=== PATIENT | male | born 1980 | race Hispanic/Latino ===

== ENCOUNTER 2019-11-28 15:01 | Inpatient (IN) | payer OTHER ==
[~2019-11-28] VITALS: Ht 170.2 cm; Wt 75.9 kg
[2019-11-28 15:30] LABS: BASOPHILS % (AUTO) 0.7 % (0.0-5.0); HEMATOCRIT 30.8 % (42-54); LYMPHOCYTES % (AUTO) 11.1 % (21.0-51.0); MEAN CORPUSCULAR HEMOGLOBIN 31.3 pg (27.0-33.0); MEAN CORPUSCULAR HGB CONC 36.7 g/dL (32.0-36.0); MEAN CORPUSCULAR VOLUME 85.3 fL (79-99); MONOCYTES % (AUTO) 10.6 % (3.0-13.0); NEUTROPHILS % (AUTO) 76.6 % (40.0-77.0); PLATELET COUNT (AUTO) 83 K/uL (130-400); RED BLOOD CELL COUNT(AUTO) 3.61 MIL/uL (4.50-6.20); RED CELL DISTRIBUTION WIDTH 19.5 % (11.0-15.5)
[2019-11-28] MEDS ORDERED: CEFTRIAXONE SODIUM 2 GM VIAL ONE ×2 (15:38→15:58)
[2019-11-28] MEDS ORDERED: LORAZEPAM 2 MG/ML 1 ML VIAL ONE (15:39)
[2019-11-28 15:49] LABS: ALCOHOL, BLOOD 8 mg/dL (0-10); AMMONIA 36 umol/L (11-32)
[2019-11-28 15:53] LABS: APPEARANCE,URINE CLOUDY (CLEAR); BILIRUBIN,URINE LARGE (NEGATIVE); COLOR,URINE BROWN (YELLOW); GLUCOSE, URINE (UA) 100 mg/dL (NEGATIVE); KETONES,URINE 15 mg/dL (NEGATIVE); LEUKOCYTE ESTERASE ,URINE LARGE (NEGATIVE); NITRATE,URINE POSITIVE (NEGATIVE); OCCULT BLOOD,URINE MODERATE (NEGATIVE); PROTEIN,URINE >=300 mg/dL (NEGATIVE)
[2019-11-28 16:05] LABS: BACTERIA,URINE Moderate /HPF (None Seen); MUCUS,URINE Few LPF (None Seen); SQUAMOUS EPITHELIAL CELL,UR 0-2 /HPF (0-2)
[2019-11-28 16:08] LABS: AMPHET/METH SCREEN,URINE NEGATIVE (NEGATIVE); BARBITURATE SCREEN, URINE NEGATIVE (NEGATIVE); BENZODIAZEPINES SCREEN,URINE NEGATIVE (NEGATIVE); CANNABINOID SCREEN,URINE NEGATIVE (NEGATIVE); COCAINE SCREEN,URINE NEGATIVE (NEGATIVE); OPIATE SCREEN,URINE NEGATIVE (NEGATIVE); PHENCYCLIDINE SCREEN,URINE NEGATIVE (NEGATIVE)
[2019-11-28 16:09] LABS: ALBUMIN 2.1 g/dL (3.5-5.0); CREATININE 0.8 mg/dL (0.5-1.5)
[2019-11-28 16:11] LABS: BILIRUBIN,TOTAL 19.8 mg/dL (0.2-1.0); POTASSIUM 2.8 mmol/L (3.5-5.1)
[2019-11-28 16:12] LABS: BILIRUBIN,DIRECT 16.9 mg/dL (0.0-0.3)
[2019-11-28] MEDS ORDERED: POTASSIUM CHLORIDE 10% ELIXIR 20 MEQ/15 ML UDCUP ONE (17:14)
[2019-11-28] MEDS ORDERED: MAGNESIUM SULFATE 1 GM in SODIUM CHLORIDE 0.9% 50 ML IV SCH ×2 (17:45→18:00)
[2019-11-28] MEDS ORDERED: LORAZEPAM 2 MG/ML 1 ML VIAL IVP PRN (19:00)
[2019-11-28] MEDS ORDERED: ONDANSETRON HCL 4 MG/2 ML VIAL IV PRN (19:00)
[2019-11-28] MEDS ORDERED: PROMETHAZINE HCL 25 MG TABLET PO PRN (19:00)
[2019-11-28] MEDS ORDERED: PHARMACY COMMUNICATION MISC PRN (19:00)
[2019-11-28] MEDS ORDERED: ACETAMINOPHEN 325 MG TAB PO PRN (19:00)
[2019-11-28] MEDS: THIAMINE HCL 100 MG TABLET PO SCH (19:00)
[2019-11-28] MEDS: POTASSIUM CHLORIDE 20 MEQ ERTAB PO SCH (19:15)
[2019-11-28] MEDS: FAMOTIDINE/PF 20 MG/2 ML VIAL IV SCH (21:00)
[2019-11-28] MEDS ORDERED: THIAMINE HCL 100 MG, FOLIC ACID 1 MG, M.V.I. IV [ADULT] 10 ML in SODIUM CHLORIDE 0.9% 1... IV SCH (21:00)
[2019-11-28] MEDS ORDERED: THIAMINE HCL 100 MG TABLET ONE (21:23)
[2019-11-28] MEDS ORDERED: FAMOTIDINE/PF 20 MG/2 ML VIAL IV ONE (21:23)
[2019-11-28] MEDS ORDERED: POTASSIUM CHLORIDE 20 MEQ ERTAB PO ONE (21:23)
[2019-11-29 00:14] VITALS: BP 126/89
[2019-11-29] MEDS ORDERED: PHARMACY COMMUNICATION MISC PRN (00:30)
[2019-11-29] MEDS ORDERED: CHLORDIAZEPOXIDE HCL 25 MG CAP ONE (00:54)
--- NOTE | 2019-11-29 01:45 | NUR ---
PT PULLED IV CATH OUT. PT CONFUSED ABOUT WHERE HE IS AT. REORIENTATED PT TO ROOM AND PLACE. STARTED NEW IV 22G TO RIGHT FOREARM.
[2019-11-29] MEDS: LORAZEPAM 2 MG/ML 1 ML VIAL IVP PRN ×2 (02:44→09:49)
--- NOTE | 2019-11-29 04:40 | NUR ---
PT PULLED IV OUT WITH CATH INTACT. PT REFUSING FOR NEW IV START. REORIENTATED PT TO ROOM AND PLACE. WILL CONT TO MONITOR PT STATUS.
[2019-11-29 07:30] VITALS: BP 110/74
[2019-11-29] MEDS: FAMOTIDINE/PF 20 MG/2 ML VIAL IV SCH ×2 (09:00→20:07)
[2019-11-29] MEDS ORDERED: ZIPRASIDONE MESYLATE 20 MG/VIAL IM SCH (10:00)
[2019-11-29 10:08] LABS: CREATININE 0.6 mg/dL (0.5-1.5); POTASSIUM 3.4 mmol/L (3.5-5.1)
[2019-11-29] MEDS: FOLIC ACID 1 MG TABLET PO SCH (10:17)
[2019-11-29] MEDS: MULTIVITAMIN TABLET PO SCH (10:17)
[2019-11-29] MEDS: THIAMINE HCL 100 MG TABLET PO SCH (10:17)
[2019-11-29] MEDS: CHLORDIAZEPOXIDE HCL 25 MG CAP PO PRN ×3 (10:18→21:04)
[2019-11-29 10:30] LABS: MAGNESIUM 1.7 mg/dL (1.80-2.40)
--- NOTE | 2019-11-29 10:30 | NUR ---
PAITENT WITH CONFUSION AND DELIRIUM HITTING DOMINGUEZ. CODE MAN POWER ACTIVATED , ATIVAN GIVEN PER IM ROUTE DUE TO NO IV ACCESS,OKAYED BY AJ ,CARAMEL CUTTER MACHINE ,AND PLACED STANDING ORDER FOR SETH IN X 1 . PATIENT WITH 1:1 OBSERVATION. INFORMED EMERGECNY CONTACT OF STATUS . WILL CONT TO MONITOR .
[2019-11-29 11:00] VITALS: BP 118/82
[2019-11-29 11:03] LABS: INR 1.25 (0.85-1.15); PROTHROMBIN TIME 13.4 SEC (9.6-11.6)
[2019-11-29] MEDS ORDERED: MAGNESIUM OXIDE 400 MG TABLET PO SCH (11:45)
[2019-11-29] MEDS: POTASSIUM CHLORIDE 20 MEQ ERTAB PO SCH (14:40)
--- NOTE | 2019-11-29 16:06 | NUR ---
CM NOTE/IA PATIENT IS CONFUSED, NEXT OF KIN CALLED, ADITI DOUGLASQUEZ. PER SPOUSE, PATIENT LIVES WITH FAMILY, IS INDEPENDENT WITH ADLS, NO USE OF DME OR PROVIDER SERVICES, AND FEELS SAFE FOR PATIENT TO RETURN HOME ONCE DISCHARGED. MAY ALSO CONTACT MOTHER IN LAW, MARK CERON,, , IF ANYTHING NEEDED. Addendum: 11/29/19 at 1609 by ELIAS MIXON RN CM Amended: Links added.
--- NOTE | 2019-11-29 16:41 | NUR ---
PATIENT RESTING ,RESP EVEN AND UNLABORED . WILL CONT TO MONITOR. 1:1 OBSERVATION
[2019-11-29] MEDS: LACTULOSE 20 GM/30 ML UDCUP PO PRN (17:39)
--- NOTE | 2019-11-29 18:26 | NUR ---
PATIENT WITH TREMORS ,PACING BACK AND FORTH . LIBRIUM GIVEN PER PRN ORDER. 1:1 SITTER
[2019-11-29] MEDS ORDERED: LORAZEPAM 2 MG/ML 1 ML VIAL IM PRN (18:29)
[2019-11-29 20:39] VITALS: BP 121/83
--- NOTE | 2019-11-30 00:51 | NUR ---
ROUNDS PT ASLEEP AT THIS TIME. OBSERVED RISE AND FALL OF CHEST. NO DISTRESS NOTED. SITTER REMAINS OUTSIDE PT'S ROOM WITH DOOR OPEN. PT WILL CONT TO BE CLOSELY MONITORED. PT REMAINS WITHOUT PIV, WILL ATTEMPT TO PLACE A PIV ONCE PT WAKES UP.
[2019-11-30] MEDS: CHLORDIAZEPOXIDE HCL 25 MG CAP PO PRN ×3 (03:26→17:54)
[2019-11-30 04:00] VITALS: BP 118/81
--- NOTE | 2019-11-30 04:47 | NUR ---
PIV INSERTED ON RIGHT UE. 20 G. SALINE LOCKED. WRAPPED WITH KERLIX AND TAPE TO PRESERVE PIV. PIV PATENT, FLUSHES WELL, GOOD BLOOD RETURN.
[2019-11-30 05:52] LABS: ALBUMIN 1.6 g/dL (3.5-5.0); CREATININE 0.5 mg/dL (0.5-1.5); MAGNESIUM 1.9 mg/dL (1.80-2.40); TOTAL PROTEIN, SERUM 5.7 g/dL (6.0-8.3)
[2019-11-30 06:06] LABS: BILIRUBIN,TOTAL 17.7 mg/dL (0.2-1.0); POTASSIUM 2.8 mmol/L (3.5-5.1)
[2019-11-30] MEDS: LACTULOSE 20 GM/30 ML UDCUP PO PRN (06:07)
--- NOTE | 2019-11-30 06:09 | NUR ---
REYNALDO PAGED TO REPORT A POTASSIUM LEVEL OF 2.8 AND A TOTAL BILI OF 17. PENDING CALL BACK.
[2019-11-30] MEDS ORDERED: LIDOCAINE HCL-MPF 1% 2ML VIAL IV PRN (06:15)
[2019-11-30] MEDS ORDERED: POTASSIUM CHLORIDE 20MEQ/100ML 100 ML IV PRN (06:15)
[2019-11-30] MEDS: MAGNESIUM 2GM PREMIX 50ML 50 ML IV PRN (06:39)
[2019-11-30] MEDS: POTASSIUM CHLORIDE 10% ELIXIR 20 MEQ/15 ML UDCUP PO PRN ×3 (06:40→11:04)
[2019-11-30 08:00] VITALS: BP 114/67
[2019-11-30] MEDS ORDERED: PHARMACY COMMUNICATION MISC SCH (08:30)
[2019-11-30] MEDS: FOLIC ACID 1 MG TABLET PO SCH (09:00)
[2019-11-30] MEDS: MULTIVITAMIN TABLET PO SCH (09:00)
[2019-11-30] MEDS: THIAMINE HCL 100 MG TABLET PO SCH (09:00)
[2019-11-30] MEDS: FAMOTIDINE/PF 20 MG/2 ML VIAL IV SCH ×2 (09:41→21:26)
[2019-11-30] MEDS: M.V.I. IV [ADULT] 10 ML, THIAMINE HCL 100 MG, FOLIC ACID 1 MG in SODIUM CHLORIDE 0.9% 1... IV SCH (10:47)
[2019-11-30] MEDS: LACTULOSE 20 GM/30 ML UDCUP PO SCH ×2 (11:04→21:27)
[2019-11-30 12:00] VITALS: BP 109/72
[2019-11-30 16:00] VITALS: BP 111/78
[2019-11-30] MEDS: POTASSIUM CHLORIDE 20 MEQ ERTAB PO SCH (16:46)
[2019-11-30] MEDS: LACTATED RINGERS 1000ML 1,000 ML IV SCH (18:12)
--- NOTE | 2019-11-30 19:30 | NUR ---
PM Assessment Received remain on 1:1 sitter due alcohol withdrawal symptoms, but currently calm & collect. Routine assessment done, plan of care discuss, claimed started drinking at the age o 19y/o, Beer. I inform the pt the he still have time to change to stop drinking as of this time causing for him to be yellowish in color which pt acknowledges & stated will try to quit. Pt currently denies discomfort, noted when ambulating to the bathroom with very unsteady gait, assisted by Victoriano RIOS. With LR at 500cc/hr infusing well.
[2019-11-30 21:13] VITALS: BP 113/71
[2019-12-01 00:02] VITALS: BP 118/71
[2019-12-01 03:48] VITALS: BP 116/69
[2019-12-01 05:49] LABS: ALBUMIN 1.6 g/dL (3.5-5.0); CREATININE 0.6 mg/dL (0.5-1.5); POTASSIUM 3.2 mmol/L (3.5-5.1)
[2019-12-01 06:01] LABS: BILIRUBIN,TOTAL 16.8 mg/dL (0.2-1.0)
[2019-12-01] MEDS: LACTATED RINGERS 1000ML 1,000 ML IV SCH (06:01)
[2019-12-01] MEDS: POTASSIUM CHLORIDE 10% ELIXIR 20 MEQ/15 ML UDCUP PO PRN ×3 (06:23→10:33)
[2019-12-01 08:00] VITALS: BP 124/79
[2019-12-01] MEDS: FAMOTIDINE/PF 20 MG/2 ML VIAL IV SCH ×2 (08:14→20:11)
[2019-12-01] MEDS: FOLIC ACID 1 MG TABLET PO SCH (08:15)
[2019-12-01] MEDS: LACTULOSE 20 GM/30 ML UDCUP PO SCH ×2 (08:15→20:11)
[2019-12-01] MEDS: POTASSIUM CHLORIDE 20 MEQ ERTAB PO SCH (08:15)
[2019-12-01] MEDS: THIAMINE HCL 100 MG TABLET PO SCH (08:16)
[2019-12-01] MEDS: MULTIVITAMIN TABLET PO SCH (08:16)
[2019-12-01 12:00] VITALS: BP 101/62
[2019-12-01] MEDS: M.V.I. IV [ADULT] 10 ML, THIAMINE HCL 100 MG, FOLIC ACID 1 MG in SODIUM CHLORIDE 0.9% 1... IV SCH (14:52)
[2019-12-01] MEDS: MEROPENEM 1 GM VIAL IVP SCH ×2 (14:52→20:10)
[2019-12-01 16:00] VITALS: BP 117/97
[2019-12-01 19:46] VITALS: BP 121/75
[2019-12-02] VITALS (7 sets, daily range): BP systolic 102–113; BP diastolic 60–73
[2019-12-02] MEDS: MEROPENEM 1 GM VIAL IVP SCH ×3 (05:18→21:40)
[2019-12-02 05:26] LABS: HEMATOCRIT 22.9 % (42-54); MEAN CORPUSCULAR HEMOGLOBIN 32.1 pg (27.0-33.0); MEAN CORPUSCULAR HGB CONC 35.4 g/dL (32.0-36.0); MEAN CORPUSCULAR VOLUME 90.9 fL (79-99); PLATELET COUNT (AUTO) 91 K/uL (130-400); RED BLOOD CELL COUNT(AUTO) 2.52 MIL/uL (4.50-6.20); RED CELL DISTRIBUTION WIDTH 21.5 % (11.0-15.5); WHITE BLOOD COUNT (AUTO) 3.8 K/uL (4.8-10.8)
[2019-12-02 05:43] LABS: ALBUMIN 1.3 g/dL (3.5-5.0); BILIRUBIN,TOTAL 14.6 mg/dL (0.2-1.0); CREATININE 0.5 mg/dL (0.5-1.5); MAGNESIUM 1.8 mg/dL (1.80-2.40); TOTAL PROTEIN, SERUM 5.5 g/dL (6.0-8.3)
[2019-12-02] MEDS: LACTATED RINGERS 1000ML 1,000 ML IV SCH ×2 (05:43→20:26)
[2019-12-02] MEDS: POTASSIUM CHLORIDE 20 MEQ ERTAB PO PRN ×2 (06:14→22:19)
[2019-12-02 06:18] LABS: BAND NEUTROPHILS % (MANUAL) 7 % (0-2); BASOPHILS % (MANUAL) 2 % (0-2); EOSINOPHILS % (MANUAL) 3 % (1-6); LYMPHOCYTES % (MANUAL) 25 % (22-44); MAN.DIFF COMMENT-IMPRESSION MANUAL DIFFERENTIAL; MONOCYTES % (MANUAL) 6 % (2-9); PLATELET MORPHOLOGY COMMENT DECREASED; REACTIVE LYMPHOCYTES 3 % (0-0); SEGMENTED NEUTROPHILS % 54 % (40-70)
[2019-12-02] MEDS: THIAMINE HCL 100 MG TABLET PO SCH (09:00)
[2019-12-02] MEDS: FAMOTIDINE/PF 20 MG/2 ML VIAL IV SCH ×2 (10:55→21:39)
[2019-12-02] MEDS: POTASSIUM CHLORIDE 20 MEQ ERTAB PO SCH (10:56)
[2019-12-02] MEDS: MULTIVITAMIN TABLET PO SCH (10:58)
--- NOTE | 2019-12-02 11:35 | NUR ---
Referral for Alcohol Rehab: SW met with pt. who is awake, alert, oriented, calm and cooperative. Pt. reports that he is admitted to hospital days ago after feeling ill. Pt. admits to decades of etoh use increasing to up to 6 of the 20oz's cans per day. Pt. reports that he has never sought rehab or AA assistance in the past. Pt. denies any use of any illicit substances and reports that he was a social smoker up until about one month ago. Pt. denies any thoughts of harm to self or others. Pt. denies any history of depression, anxiety or any other mental illness. Pt. verbalized that he would like assistance with etoh use. SW spoke with pt. at length about AA meetings and rehab under the services of [facility]. Pt. verbalized an understanding to program assistance and that he would have to initiate call in order to be interviewed, stating he would do so after being dismissed. 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 Pt. reported all utilities reportedly connected in the home and family has own transportation. Pt's spouse to provide transportation home at discharge. In addition to rehab assistance info, pt. was provided with Community Resource Packet including low/cost clinics, pharmacies, food bank, etc . Pt. reported no concerns or other SS needs. Addendum: 12/02/19 at 1341 by ILIANA MIXON SS Amended: Links added.
[2019-12-02] MEDS: LACTULOSE 20 GM/30 ML UDCUP PO SCH (21:39)
--- NOTE | 2019-12-02 21:40 | NUR ---
ANTIBIOTICS Pt remains on Iv antibiotic for UTI,no adverse effects noted.
[2019-12-02] MEDS: M.V.I. IV [ADULT] 10 ML, THIAMINE HCL 100 MG, FOLIC ACID 1 MG in SODIUM CHLORIDE 0.9% 1... IV SCH (21:41)
[2019-12-02] MEDS: MAGNESIUM 2GM PREMIX 50ML 50 ML IV PRN (23:06)
--- NOTE | 2019-12-02 23:31 | NUR ---
CALM Pt up ad zakiya,calm,cooperative.
[2019-12-03 04:48] LABS: POTASSIUM 3.8 mmol/L (3.5-5.1)
[2019-12-03 05:10] VITALS: BP 117/78
[2019-12-03] MEDS: MEROPENEM 1 GM VIAL IVP SCH ×3 (05:16→22:11)
[2019-12-03 07:53] VITALS: BP 122/76
[2019-12-03] MEDS: MULTIVITAMIN TABLET PO SCH (09:12)
[2019-12-03] MEDS: LACTULOSE 20 GM/30 ML UDCUP PO SCH ×2 (09:12→19:45)
[2019-12-03] MEDS: FAMOTIDINE/PF 20 MG/2 ML VIAL IV SCH ×2 (09:12→19:45)
[2019-12-03] MEDS: THIAMINE HCL 100 MG TABLET PO SCH (09:12)
[2019-12-03 10:59] LABS: BASOPHILS % (AUTO) 0.9 % (0.0-5.0); EOSINOPHILS % (AUTO) 0.2 % (0.0-8.0); HEMATOCRIT 23.8 % (42-54); LYMPHOCYTES % (AUTO) 28.5 % (21.0-51.0); MEAN CORPUSCULAR HEMOGLOBIN 32.5 pg (27.0-33.0); MEAN CORPUSCULAR HGB CONC 34.5 g/dL (32.0-36.0); MEAN CORPUSCULAR VOLUME 94.4 fL (79-99); MONOCYTES % (AUTO) 15.8 % (3.0-13.0); NEUTROPHILS % (AUTO) 50.3 % (40.0-77.0); PLATELET COUNT (AUTO) 109 K/uL (130-400); RED BLOOD CELL COUNT(AUTO) 2.52 MIL/uL (4.50-6.20); RED CELL DISTRIBUTION WIDTH 22.5 % (11.0-15.5); WHITE BLOOD COUNT (AUTO) 4.4 K/uL (4.8-10.8)
[2019-12-03 11:00] LABS: CREATININE 0.6 mg/dL (0.5-1.5)
[2019-12-03 11:37] VITALS: BP 104/65
[2019-12-03] MEDS: LACTATED RINGERS 1000ML 1,000 ML IV SCH ×2 (15:41→19:46)
[2019-12-03 16:12] VITALS: BP 108/62
[2019-12-03] MEDS: POTASSIUM CHLORIDE 20 MEQ ERTAB PO SCH (19:11)
[2019-12-03 19:37] VITALS: BP 126/75
--- NOTE | 2019-12-03 23:13 | NUR ---
CALM CIWA SCORE 0.
[2019-12-04 00:24] VITALS: BP 99/65
--- NOTE | 2019-12-04 00:34 | NUR ---
STATUS Pt resting quietly,calm,arousable.No distress noted.Pt on constant obs for possible ETOH withdrawal.CIWA score remains 0.
[2019-12-04 03:27] VITALS: BP 110/67
[2019-12-04] MEDS: MEROPENEM 1 GM VIAL IVP SCH ×3 (05:23→20:08)
[2019-12-04 06:34] LABS: ALBUMIN 1.3 g/dL (3.5-5.0); BILIRUBIN,TOTAL 11.4 mg/dL (0.2-1.0); CREATININE 0.6 mg/dL (0.5-1.5); POTASSIUM 3.5 mmol/L (3.5-5.1); TOTAL PROTEIN, SERUM 5.8 g/dL (6.0-8.3)
[2019-12-04 06:43] LABS: BASOPHILS % (AUTO) 0.8 % (0.0-5.0); EOSINOPHILS % (AUTO) 0.4 % (0.0-8.0); HEMATOCRIT 23.8 % (42-54); LYMPHOCYTES % (AUTO) 24.5 % (21.0-51.0); MEAN CORPUSCULAR HEMOGLOBIN 32.9 pg (27.0-33.0); MEAN CORPUSCULAR HGB CONC 34.5 g/dL (32.0-36.0); MEAN CORPUSCULAR VOLUME 95.6 fL (79-99); MONOCYTES % (AUTO) 14.6 % (3.0-13.0); NEUTROPHILS % (AUTO) 58.1 % (40.0-77.0); PLATELET COUNT (AUTO) 137 K/uL (130-400); RED BLOOD CELL COUNT(AUTO) 2.49 MIL/uL (4.50-6.20); RED CELL DISTRIBUTION WIDTH 22.5 % (11.0-15.5); WHITE BLOOD COUNT (AUTO) 5.2 K/uL (4.8-10.8)
[2019-12-04] MEDS: POTASSIUM CHLORIDE 20 MEQ ERTAB PO PRN ×2 (06:49→11:17)
[2019-12-04 08:00] VITALS: BP 105/69
[2019-12-04] MEDS: LACTULOSE 20 GM/30 ML UDCUP PO SCH ×2 (09:00→20:08)
[2019-12-04] MEDS: THIAMINE HCL 100 MG TABLET PO SCH (09:00)
[2019-12-04] MEDS: FAMOTIDINE/PF 20 MG/2 ML VIAL IV SCH ×2 (09:00→20:08)
[2019-12-04] MEDS: MULTIVITAMIN TABLET PO SCH (09:00)
[2019-12-04 11:48] VITALS: BP 109/69
--- NOTE | 2019-12-04 16:03 | NUR ---
RD NOTIFICATION Pt admitted with Cirrhosis and alcohol withdrawal. Pt tolerating Renal Dialysis diet order with no report of GI distress, Good PO intake at 100%. MVI, Thiamine, Lactulose in place. Recent drop in Hgb, pending GI consult. Recommend cancel Renal dialysis diet order and modify to Heart heathy Continue Vitamin supplementation 60mL Protein QD Double protein portions Faxed Cirrhosis Nutrition Education to 3D ([phone]), RN to be notified. RD to continue to monitor. Please notify as additional nutrition concerns arise. Thank you.
[2019-12-04 16:14] VITALS: BP 103/64
--- NOTE | 2019-12-04 16:15 | NUR ---
[employer]-assisted nutrition education. Cirrhosis Nutrition Education faxed to 3D [phone]), RN notified. Addendum: 12/04/19 at [address] RD Amended: Links added.
[2019-12-04] MEDS: POTASSIUM CHLORIDE 20 MEQ ERTAB PO SCH (19:15)
[2019-12-04 20:00] VITALS: BP 103/63
[2019-12-05] VITALS (7 sets, daily range): BP systolic 97–121; BP diastolic 61–80
[2019-12-05] MEDS: LACTATED RINGERS 1000ML 1,000 ML IV SCH (00:43)
[2019-12-05 04:28] LABS: BASOPHILS % (AUTO) 0.6 % (0.0-5.0); EOSINOPHILS % (AUTO) 0.2 % (0.0-8.0); HEMATOCRIT 22.7 % (42-54); LYMPHOCYTES % (AUTO) 24.2 % (21.0-51.0); MEAN CORPUSCULAR HEMOGLOBIN 33.2 pg (27.0-33.0); MEAN CORPUSCULAR HGB CONC 34.4 g/dL (32.0-36.0); MEAN CORPUSCULAR VOLUME 96.6 fL (79-99); NEUTROPHILS % (AUTO) 61.3 % (40.0-77.0); PLATELET COUNT (AUTO) 145 K/uL (130-400); RED BLOOD CELL COUNT(AUTO) 2.35 MIL/uL (4.50-6.20); RED CELL DISTRIBUTION WIDTH 22.5 % (11.0-15.5); WHITE BLOOD COUNT (AUTO) 4.8 K/uL (4.8-10.8)
[2019-12-05] MEDS: MEROPENEM 1 GM VIAL IVP SCH ×3 (04:51→19:41)
[2019-12-05 05:09] LABS: ALBUMIN 1.3 g/dL (3.5-5.0); BILIRUBIN,TOTAL 9.8 mg/dL (0.2-1.0); CREATININE 0.6 mg/dL (0.5-1.5); POTASSIUM 3.5 mmol/L (3.5-5.1); TOTAL PROTEIN, SERUM 5.9 g/dL (6.0-8.3)
[2019-12-05] MEDS: POTASSIUM CHLORIDE 20 MEQ ERTAB PO PRN ×2 (05:51→19:41)
--- NOTE | 2019-12-05 06:46 | NUR ---
nina rojas for patient's consult due to e. coli on the blood cultures and on the urine. pending call back
[2019-12-05] MEDS: LACTULOSE 20 GM/30 ML UDCUP PO SCH ×2 (09:00→19:40)
[2019-12-05] MEDS: THIAMINE HCL 100 MG TABLET PO SCH (09:00)
[2019-12-05] MEDS: FAMOTIDINE/PF 20 MG/2 ML VIAL IV SCH ×2 (09:00→19:40)
[2019-12-05] MEDS: MULTIVITAMIN TABLET PO SCH (09:00)
[2019-12-05] MEDS ORDERED: OCTREOTIDE ACETATE 1,250 MCG in SODIUM CHLORIDE 0.9% 250 ML IV SCH (15:00)
[2019-12-05] MEDS: POTASSIUM CHLORIDE 20 MEQ ERTAB PO SCH (18:19)
[2019-12-06] VITALS (9 sets, daily range): BP systolic 93–155; BP diastolic 49–82
[2019-12-06 05:10] LABS: BASOPHILS % (AUTO) 0.6 % (0.0-5.0); EOSINOPHILS % (AUTO) 0.4 % (0.0-8.0); HEMATOCRIT 22.7 % (42-54); LYMPHOCYTES % (AUTO) 26.4 % (21.0-51.0); MEAN CORPUSCULAR HEMOGLOBIN 32.9 pg (27.0-33.0); MEAN CORPUSCULAR HGB CONC 33.5 g/dL (32.0-36.0); MEAN CORPUSCULAR VOLUME 98.3 fL (79-99); MONOCYTES % (AUTO) 12.2 % (3.0-13.0); NEUTROPHILS % (AUTO) 58.9 % (40.0-77.0); PLATELET COUNT (AUTO) 152 K/uL (130-400); RED BLOOD CELL COUNT(AUTO) 2.31 MIL/uL (4.50-6.20); RED CELL DISTRIBUTION WIDTH 22.2 % (11.0-15.5); WHITE BLOOD COUNT (AUTO) 4.7 K/uL (4.8-10.8)
[2019-12-06 05:18] LABS: ALBUMIN 1.3 g/dL (3.5-5.0); BILIRUBIN,TOTAL 8.4 mg/dL (0.2-1.0); CREATININE 0.6 mg/dL (0.5-1.5); MAGNESIUM 1.7 mg/dL (1.80-2.40); POTASSIUM 3.9 mmol/L (3.5-5.1); TOTAL PROTEIN, SERUM 5.9 g/dL (6.0-8.3)
[2019-12-06] MEDS: MEROPENEM 1 GM VIAL IVP SCH (05:33)
--- NOTE | 2019-12-06 06:40 | NUR ---
marlen took patient to GI lab for EGD. patient alert and oriented times 4. patient's belongings left at the bedside.
[2019-12-06] MEDS ORDERED: MIDAZOLAM HCL 1 MG/ML 2ML VIAL ONE (07:19)
[2019-12-06] MEDS ORDERED: PROPOFOL 10 MG/ML 20ML VIAL IV ONE (07:19)
[2019-12-06] MEDS ORDERED: LIDOCAINE HCL 2% 20ML ONE (07:20)
[2019-12-06] MEDS ORDERED: SIMETHICONE 40 MG/0.6 ML ML ONE (07:36)
[2019-12-06] MEDS: THIAMINE HCL 100 MG TABLET PO SCH (10:13)
[2019-12-06] MEDS: FAMOTIDINE/PF 20 MG/2 ML VIAL IV SCH (10:13)
[2019-12-06] MEDS: MULTIVITAMIN TABLET PO SCH (10:13)
[2019-12-06] MEDS: LACTULOSE 20 GM/30 ML UDCUP PO SCH (10:13)
[2019-12-06] MEDS: MAGNESIUM 2GM PREMIX 50ML 50 ML IV PRN (10:14)
--- NOTE | 2019-12-06 17:54 | NUR ---
Pt decided to leave against medical advice. Pt stated all doctors have said he could go except one. This nurse has repeatedly explained to the pt that all doctors have to discharge him from care and he is receiving antibiotics for E. coli in his blood and E. coli and ESBL in his urine. Pt stated, "I have not received any antibiotics today. The heather told me I was only going to get three bags." This nurse explained the antibiotics were injected into the IV line when I gave the other meds earlier this shift and the 3 bags he was referring to were a different medication. He was informed the antibiotics he is receiving is Merrem 1 G. IV removed and held for 3 mins with no signs of bleeding thru the gauze and double tape was applied. Pt refused wheelchair ride from practical nursing teacher; practical nursing teacher walked the pt to the emergency room exit and watched him get into a car w/ other family members. AMA paperwork signed. Pt informed leaving AMA released the hospital and all staff from any liability.
== END 2019-12-06 18:10 | disposition left against medical advice (07) | DRG 872 ==
LOC: EDH 15:01 → EDHIP 15:02 → 3DH 22:34
PROVIDERS: ADMIT Internal Medicine; ATTEND Internal Medicine
PROC: 0DJ08ZZ Inspection of Upper Intestinal Tract, Via Natural or Artificial Opening Endoscopic (ICD-10-PCS; principal; 2019-12-06)
DX: A41.51 Sepsis due to Escherichia coli [E. coli] (principal); F10.239 Alcohol dependence with withdrawal, unspecified; E87.1 Hypo-osmolality and hyponatremia; G93.40 Encephalopathy, unspecified; E87.6 Hypokalemia; E83.42 Hypomagnesemia; B96.89 Other specified bacterial agents as the cause of diseases classified elsewhere; D64.9 Anemia, unspecified; N30.90 Cystitis, unspecified without hematuria; K82.8 Other specified diseases of gallbladder; K76.0 Fatty (change of) liver, not elsewhere classified; K70.30 Alcoholic cirrhosis of liver without ascites; K70.10 Alcoholic hepatitis without ascites; Z20.828 Contact with and (suspected) exposure to other viral communicable diseases
CPT/HCPCS: 36415; 43235; 71045; 76705; 80048; 80053; 80076; 80305; 81001; 82140; 82270; 83605; 83690; 83735; 84132; 85025; 85610; 85730; 87040; 87077; 87088; 87186; 87426; 93005; 99291; G0378; J0696; J2060; J2185; J2250; J2354; J2704; J3411; J3475; J3480; J3486; J3490; J7030; J7050; J7120; U0003